=== PATIENT | female | born 1930 | race Caucasian/White ===

== ENCOUNTER 2017-06-19 13:10 | Emergency (ER) ==
[2017-06-19 13:19] VITALS: BP 153/85; TEMP 98.2; BMI 24.2
--- NOTE | 2017-06-19 14:23 | ED.PDOC ---
General ED Provider: Dr. ESTEBAN JACOBSEN Chief Complaint: Extremity Pain/Injury Stated Complaint: Lower extremity weakness. Daughter states she recenlty relocated her mother to an assisted living center from [facility] due to increasing confusion and weakness. Today patient was left sitting on a couch for over an hour and when she attempted to get up had difficulty getting up and ambulating. Noted that after arrival her was observed to ambulate without difficulty with assistance. Time Seen by Physician: 02:05 Mode of Arrival: Walk-In Information Source: Patient Exam Limitations: No limitations, Other (hearing deficit) Primary Care Provider: NONE Nursing and Triage Documentation Reviewed and Agree: Yes Reviewed sepsis parameters & appropriate labs ordered?: Yes System Inflammatory Response Syndrome: Not Applicable Sepsis Protocol: For patient's 13 years and over: Temp is 96.8 and below OR 101 and greater Pulse >90 BPM Resp >20/minute Acutely Altered Mental Status Are patient's symptoms suggestive of a new infection, such as: -Pneumonia -Skin, Soft Tissue -Endocarditis -UTI -Bone, Joint Infection -Implantable Device -Acute Abdominal Infection -Wound Infection -Meningitis -Blood Stream Catheter Infection -Unknown System Inflammatory Response Syndrome: Not Applicable Review of Systems - Review Of Systems Constitutional: Reports: Weakness Eyes: Reports: No symptoms Ears, Nose, Mouth, Throat: Reports: No symptoms Respiratory: Reports: No symptoms Cardiac: Reports: No symptoms GI: Reports: No symptoms : Reports: No symptoms Musculoskeletal: Reports: No symptoms, Muscle pain, Other (weakness) Skin: Reports: No symptoms Neurological: Reports: Cognitive dysfunction, Weakness. Denies: Anxiety, Depressed, Emotional problems, Numbness, [place] seizures, Unable to move upper ext Endocrine: Reports: No symptoms Hematologic/Lymphatic: Reports: No symptoms All Other Systems: Reviewed and Negative Past Medical History - Past Medical History Endocrine: Reports: Hypothyroid Cardiovascular: Reports: Hypertension Respiratory: Reports: None Hematological: Reports: None Gastrointestinal: Reports: None Genitourinary: Reports: None Neuro/Psych: Reports: Anxiety Musculoskeletal: Reports: Arthritis Cancer: Reports: None Last Menstrual Period: N/A - Surgical History General Surgical History: Reports: None - Family History Family History: Reports: None - Social History Smoking Status: Never smoker Hx Substance Use: No Alcohol Screening: None Lives: In Assisted Living - Immunizations Tetanus Shot up to Date: Yes Physical Exam - Physical Exam Appearance: No pain distress Ill-appearing: None Pain Distress: None Eyes: JERALD, EOMI, Conjunctiva clear ENT: Ears normal, Nose normal, Oropharynx normal Respiratory: Airway patent, Breath sounds clear, Breath sounds equal Cardiovascular: RRR, Pulses normal, No rub GI/: Soft, Nontender, No masses, Bowel sounds normal, No Organomegaly Musculoskeletal: Normal strength, ROM intact, No calf tenderness, Edema ( Minimal lower extremity non pitting edema) Skin: Dry Neurological: Sensation intact, Motor intact, Reflexes intact, Cranial nerves intact, Alert, Oriented Psychiatric: Affect appropriate, Mood appropriate Critical Care Note - Critical Care Note Total Time (mins): 0 Course - Course Hematology/Chemistry: 06/19/17 14:35 06/19/17 14:35 Orders, Labs, Meds: Lab Review 06/19/17 06/19/17 06/19/17 14:35 14:35 14:35 WBC 6.45 RBC 4.82 Hgb 14.7 Hct 43.6 MCV 90.5 MCH 30.5 MCHC 33.7 RDW Coeff of Rei 13.3 Plt Count 162 Immature Gran % (Auto) 0.3 Neut % (Auto) 67.0 Lymph % (Auto) 23.1 [place] % (Auto) 7.9 Eos % (Auto) 1.4 Baso % (Auto) 0.3 Immature Gran # (Auto) 0.0 Neut # 4.3 Lymph # 1.5 [place] # 0.5 Eos # 0.1 Baso # 0.0 Sodium 140 Potassium 4.4 Chloride 104 Carbon Dioxide 30 Anion Gap 10.4 BUN 20 H Creatinine 1.10 Estimated GFR (MDRD) 47.00 BUN/Creatinine Ratio 18.18 Glucose 110 Calcium 9.4 Magnesium 2.2 Total Bilirubin 0.6 AST 18 ALT 12 Alkaline Phosphatase 64 Total Protein 7.3 Albumin 3.4 Globulin 3.9 Albumin/Globulin Ratio 0.87 Urine Color Urine Clarity Urine pH Ur Specific [place] Urine Protein Urine Glucose (UA) Urine Ketones Urine Blood Urine Nitrite Urine Bilirubin Urine Urobilinogen Ur Leukocyte Esterase 06/19/17 14:57 WBC RBC Hgb Hct MCV MCH MCHC RDW Coeff of Rei Plt Count Immature Gran % (Auto) Neut % (Auto) Lymph % (Auto) [place] % (Auto) Eos % (Auto) Baso % (Auto) Immature Gran # (Auto) Neut # Lymph # [place] # Eos # Baso # Sodium Potassium Chloride Carbon Dioxide Anion Gap BUN Creatinine Estimated GFR (MDRD) BUN/Creatinine Ratio Glucose Calcium Magnesium Total Bilirubin AST ALT Alkaline Phosphatase Total Protein Albumin Globulin Albumin/Globulin Ratio Urine Color Yellow Urine Clarity Clear Urine pH 6.5 Ur Specific [place] 1.015 Urine Protein Negative Urine Glucose (UA) Negative Urine Ketones Negative Urine Blood Negative Urine Nitrite Negative Urine Bilirubin Negative Urine Urobilinogen 1.0 Ur Leukocyte Esterase Negative Orders Category Date Time Status CBC W/ AUTO DIFF Stat LAB 06/19/17 14:35 Completed CMP [COMPREHENSIVE METABOLIC PANEL] Stat LAB 06/19/17 14:35 Completed MAGNESIUM Stat LAB 06/19/17 14:35 Completed UA [URINALYSIS C & S IF INDICATED] Stat LAB 06/19/17 14:57 Completed Vital Signs: Temp Pulse Resp BP Pulse Ox 06/19/17 13:11 98.2 F 81 20 153/85 H 95 LEA Risk Score LEA Risk Score: Risk Score Odds of by 30D 0 0.1 (0.1-0.2) 1 0.3 (0.2-0.3) 2 0.4 (0.3-0.5) 3 0.7 (0.6-0.9) 4 1.2 (1.0-1.5) 5 2.2 (1.9-2.6) 6 3.0 (2.5-3.6) 7 4.8 (3.8-6.1) Departure - Departure Time of Disposition: 15:40 Disposition: HOME SELF-CARE Discharge Problem: Weakness Instructions: Active Range of Motion Exercises (GEN), Passive Range of Motion Exercises (GEN), Weakness (ED) Condition: Good Pt referred to PMD for follow-up: Yes (7 days) Additional Instructions: Contact local PCP to establish care Follow up 1 wk Seek referral for Physical Therapy for strengthening exercise Allergies/Adverse Reactions: Allergies No Known Allergies Allergy (Unverified 06/19/17 13:23) Home Medications: Ambulatory Orders Buspirone HCl 5 mg PO DAILY 06/19/17 Furosemide 20 mg PO DAILY 06/19/17 Levothyroxine Sodium 12.5 mcg PO DAILY 06/19/17 Metoprolol Tartrate 50 mg PO DAILY 06/19/17 Potassium Chloride [Klor-Con 10] 10 mg PO DAILY 06/19/17
== END 2017-06-19 16:03 | disposition home or self-care (01) ==
LOC: ED 13:10
DX: R53.1 Weakness (principal); I10 Essential (primary) hypertension; E03.9 Hypothyroidism, unspecified; R60.0 Localized edema
CPT/HCPCS: 36415; 80053; 81001; 83735; 85025; 99283

== ENCOUNTER 2017-09-01 12:55 | Inpatient (IN) ==
[2017-09-01 13:36] VITALS: BMI 21.9
[2017-09-01] MEDS ORDERED: ATROPINE SULFATE PFS IVP PRN (13:38)
[2017-09-01] MEDS ORDERED: NITROSTAT SL PRN (13:38)
[2017-09-01] MEDS ORDERED: MORPHINE 4 MG/ML VIAL IVP PRN (13:38)
[2017-09-01] MEDS ORDERED: TYLENOL PO PRN (13:38)
--- NOTE | 2017-09-01 14:28 | DI ---
EXAM: Single view of the chest HISTORY: Cough. COMPARISON: None FINDINGS: Cardiomediastinal silhouette is upper limit of normal with sternotomy wires and cardiac kimberlyn ve. There is no pneumothorax. There is minimal hazy ground-glass in the left lung base. There is n o acute consolidation. The osseous structures demonstrate degenerative disease of the shoulders. IMPRESSION: Mild left lower lobe ground-glass may represent atelectasis/small airways inflammation v ersus small effusion.
[2017-09-01] MEDS: ATIVAN PO SCH ×3 (14:40→20:48)
[2017-09-01] MEDS: LEXAPRO PO SCH (14:40)
[2017-09-01] MEDS: SEROQUEL PO SCH ×2 (14:40→20:48)
[2017-09-01] MEDS ORDERED: GLUCOPHAGE PO SCH (17:30)
[2017-09-01] MEDS: BUSPAR PO SCH (20:47)
[2017-09-01] MEDS: LOPRESSOR PO SCH (20:48)
[2017-09-02] MEDS: SYNTHROID PO SCH (05:48)
[2017-09-02] MEDS: VISTARIL INJ IM PRN ×2 (06:59→16:37)
[2017-09-02] MEDS: SEROQUEL PO SCH ×3 (09:00→20:59)
--- NOTE | 2017-09-02 09:33 | PCM.PROG ---
Attending Provider: ATTENDING PROVIDER: Dr. ROBERTO MONTOYA This patient is seen with Melva Chao, Nurse Practitioner. DATE OF SERVICE: 09/02/17 SUBJECTIVE: This 87 year old WHITE/ F was hospitalized 09/01/17. The patient is sitting in bed. She did not rest last night, is confused, hasn't hit anyone but has aggressive verbal behavior. REVIEW OF SYSTEMS: CONSTITUTIONAL: No night sweats. No fatigue, malaise, lethargy. No fever or chills. HEENT: Eyes: No visual changes. No eye pain. No eye discharge. ENT: No runny nose. No epistaxis. No sinus pain. No odynophagia. No congestion. RESPIRATORY: No cough, no congestion. No hemoptysis. No shortness of breath. CARDIOVASCULAR: No angina symptoms. No CHF symptoms. No atypical chest pain for CAD. No palpitations. No orthopnea.. GASTROINTESTINAL: No abdominal pain. No nausea or vomiting. No diarrhea or constipation. No hematemesis. No hematochezia. GENITOURINARY: No urgency. No frequency. No dysuria. No hematuria. No obstructive symptoms. No discharge. No pain. No significant abnormal bleeding. MUSCULOSKELETAL: No musculoskeletal pain; no joint swelling. NEUROLOGICAL: Awake, confused, aggressive. No headache. No neck pain. No syncope. No seizures. No dizziness. PSYCHIATRIC: Confusion, aggression. Not anxious. No depression. No suicidal thoughts. No homicidal thoughts. SKIN: No rash. No lesions. No wounds. ENDOCRINE: No unexplained weight loss. No weight gain. HEMATOLOGIC/LYMPHATIC: No anemia. No purpura. No petechiae. No prolonged or excessive bleeding. No palpable lymph nodes. PHYSICAL EXAMINATION: GENERAL: The patient is awake, alert, oriented to person only sitting in bed in no distress. VITAL SIGNS: Temperature 97.3 F, Pulse 80, Respiratory Rate 16, BP 138/80, Pulse Ox 95% HEENT: Head normocephalic, atraumatic. Eyes: Extraocular muscles are intact. Pupils are equal, round and reactive to light and accommodation. Ears: No lesions. Nose appeared normal. Throat: No exudate or erythema. NECK: Supple. No JVD, no carotid bruit. No lymphadenopathy or thyromegaly. LUNGS: Diminished breath sounds. Clear to auscultation. Percussion note normal. Chest symmetrical. HEART: S1, S2, no S3. No murmurs. No cyanosis or clubbing. No ascites. Pulses: Dorsalis pedis and posterior tibial pulses +1 to +2 both sides. ABDOMEN: Soft. Non-tender. Bowel sounds active. No CVA tenderness. No mass felt. EXTREMITIES: No edema. Full range of motion of all extremities, equal. NEUROLOGIC: No focal deficit. Cranial nerves II through XII are grossly intact. No headache, no double vision or headache. SKIN: Not dry. Intact. Turgor-normal. LYMPHATIC: No palpable lymph nodes/no lymphedema. MUSCULOSKELETAL: Normal joints with no swelling. Muscle tone is normal. LAB REVIEW: 09/02/17 04:45 09/02/17 04:45 09/02/17 04:45: Sodium 143, Potassium 4.4, Chloride 108 H, Carbon Dioxide 29, Anion Gap 10.4, BUN 33 H, Creatinine 1.14, Estimated GFR (MDRD) 45.00, BUN/ Creatinine Ratio 28.94, Glucose 83, Calcium 8.9, Total Bilirubin 0.5, AST 14 L, ALT 9 L, Alkaline Phosphatase 50 L, Total Protein 5.7 L, Albumin 2.8 L, Globulin 2.9, Albumin/Globulin Ratio 0.97 09/02/17 04:45: WBC 7.13, RBC 3.98 L, Hgb 12.3, Hct 36.7 L, MCV 92.2, MCH 30.9, MCHC 33.5, RDW Coeff of Rei 13.9, Plt Count 143, Immature Gran % (Auto) 0.7, Neut % (Auto) 57.6, Lymph % (Auto) 28.1, [place] % (Auto) 10.5 H, Eos % (Auto) 2.5 , Baso % (Auto) 0.6, Immature Gran # (Auto) 0.1, Neut # (Auto) 4.1, Lymph # ( Auto) 2.0, Donley # (Auto) 0.8, Eos # (Auto) 0.2, Baso # (Auto) 0.0 09/01/17 21:42: Total Creatine Kinase 25, Troponin I 0.0310 09/01/17 18:20: Urine Color Yellow, Urine Clarity Clear, Urine pH 7.0, Ur Specific [place] 1.020, Urine Protein Trace, Urine Glucose (UA) Negative, Urine Ketones 1+, Urine Blood Negative, Urine Nitrite Negative, Urine Bilirubin 1+, Urine Urobilinogen 4.0, Ur Leukocyte Esterase Negative, Urine Microscopic WBC 0- 2, Ur Squamous Epith Cells 2-5, Urine Bacteria Trace 09/01/17 14:08: Vitamin B12 756 09/01/17 14:08: Sodium 142, Potassium 4.2, Chloride 106, Carbon Dioxide 30, Anion Gap 10.2, BUN 29 H, Creatinine 1.31 H, Estimated GFR (MDRD) 38.00, BUN/ Creatinine Ratio 22.13, Glucose 85, Calcium 9.2, Total Bilirubin 0.7, AST 15, ALT 11 L, Alkaline Phosphatase 56, Total Creatine Kinase 27, Troponin I 0.0220, Total Protein 6.4, Albumin 3.1 L, Globulin 3.3, Albumin/Globulin Ratio 0.94, Free T4 0.96 09/01/17 14:08: WBC 6.48, RBC 4.31, Hgb 13.4, Hct 39.3, MCV 91.2, MCH 31.1 H, MCHC 34.1, RDW Coeff of Rei 13.9, Plt Count 144, Immature Gran % (Auto) 0.6, Neut % (Auto) 58.5, Lymph % (Auto) 28.5, [place] % (Auto) 9.0, Eos % (Auto) 2.9, Baso % (Auto) 0.5, Immature Gran # (Auto) 0.0, Neut # (Auto) 3.8, Lymph # (Auto ) 1.9, Donley # (Auto) 0.6, Eos # (Auto) 0.2, Baso # (Auto) 0.0 ASSESSMENT: Please see below. 1. DEMENTIA WITH AGGRESSIVE BEHAVIOR PLAN: 1. Referred to [facility] 2. Increase Seroquel 25 mg b.i.d. 3. Aricept 5 mg daily 4. Namenda 10 mg daily 5. Fall precautions Plan and coordination of the patient's care discussed in the presence of Supervisor Backfilling and nurse. CONDITION: Stable SCRIBED BY: AMANDO KUO Tail Dogger scribed while in presence of service performed by Dr. Montoya/Melva Chao APRN on 09/02/17 ([id number])
[2017-09-02] MEDS: ATIVAN PO SCH ×3 (09:34→20:58)
[2017-09-02] MEDS: ASPIRIN EC PO SCH (09:34)
[2017-09-02] MEDS: BUSPAR PO SCH ×2 (09:34→20:58)
[2017-09-02] MEDS: LOPRESSOR PO SCH ×2 (09:34→20:58)
[2017-09-02] MEDS: LEXAPRO PO SCH (09:35)
--- NOTE | 2017-09-02 11:13 | CT ---
EXAM: CT head without contrast HISTORY: Change in behavior, increased agression COMPARISON: None TECHNIQUE: Serial axial images of the brain were obtained from the skull base to the vertex without IV contrast. FINDINGS: The ventricles, cisterns and sulci demonstrate mild generalized volume loss. The salazar-whi te matter junction is maintained. There is low attenuation extending through the salazar-white matter j unction in the left occipital lobe on image 18.No midline shift or mass is identified. There is no a bnormal intra or extra-axial fluid collection. The paranasal sinuses demonstrates the left paranasal sinus mucosal thickening with hyperostosis. The mastoid air cells are clear. The osseous calvarium is intact. IMPRESSION: 1. No acute intracranial hemorrhage. 2. Low attenuation extending through the left occipital lobe suggestive of age indeterminate ischemi c injury. No prior is available for comparison. 3. Scattered microangiopathy and generalized volume loss. 4. Acute on chronic left maxillary sinusitis. If further evaluation is clinically indicated, MRI may be obtained.
[2017-09-02] MEDS: ARICEPT PO SCH (14:11)
--- NOTE | 2017-09-02 15:09 | HP ---
DATE OF SERVICE: 09/02/17 HISTORY OF PRESENT ILLNESS: 87-year-old white female brought to the office by her daughter, La, as the assisted living which she lives, [facility], has been complaining lately about her being more confused and has aggressive behavior. According to them, the patient is frantically looking for her parents, small children, brothers, sisters. She frequently knocks on the resident's doors day and night wanting help getting to her parents house. The patient also threatened to call police and threatens violence. She is quite destructive to employees, residents and family members of residents frequently throughout the day. Everyone tries to calm her down but to no avail. In fact, it exacerbates her mood at times. At times she uses vulgar language to some of the employees. She was known to exacerbate Sundowner's behavior. Also was noted to be up all night and has very difficult pattern that she follows for sleep lately. The patient has history of dementia. She became my patient on July 07. OTHER PAST MEDICAL HISTORY: 1. Mitral valve replacement 2. Anxiety syndrome 3. Vitamin B12 deficiency 4. Hypertension 5. Hypothyroidism PAST SURGICAL HISTORY: 1. Hysterectomy 1960 2. Mitral valve replacement, 2012 REVIEW OF SYSTEMS: CONSTITUTIONAL: Weakness and fatigue. No night sweats. No malaise, lethargy. No fever or chills. HEENT: Eyes: No visual changes. No eye pain. No eye discharge. ENT: No runny nose. No epistaxis. No sinus pain. No sore throat. No odynophagia. No ear pain. No congestion. RESPIRATORY: No cough, no congestion. No hemoptysis. No shortness of breath. CARDIOVASCULAR: No angina symptoms. No CHF symptoms. No atypical chest pain for CAD. No palpitations. No PND, no orthopnea. GASTROINTESTINAL: No abdominal pain. No nausea or vomiting. No diarrhea or constipation. No hematemesis. No hematochezia. GENITOURINARY: No urgency. No frequency. No dysuria. No hematuria. No obstructive symptoms. No discharge. No pain. No significant abnormal bleeding. MUSCULOSKELETAL: No musculoskeletal pain. No joint swelling. No arthritis. NEUROLOGICAL: The patient's mental status has deteriorated with aggressive behavior. She is more confused. No headache. No neck pain. No syncope. No seizures. No dizziness. PSYCHIATRIC: Not anxious. No depression. No suicidal thoughts. No homicidal thoughts. SKIN: No rash. No lesions. No wounds. ENDOCRINE: No unexplained weight loss. No weight gain. HEMATOLOGIC/LYMPHATIC: No anemia. No purpura. No petechiae. No prolonged or excessive bleeding. No palpable lymph nodes. PERSONAL/FAMILY/SOCIAL HISTORY: The patient is , has three children. Lives in Assisted Living. La, the daughter is taking care of her with power of mergers and acquisitions attorney. She usually does all activities of daily living. Nonsmoker. No alcohol use. Family History: Father at age 40. Mother at age 93. Three brothers, two sisters. MEDICATIONS: Levothyroxine 50 mcg 1/2 tablet daily Lasix 20 mg every other day Klor-Con 10 mEq p.o. every other day Buspirone 5 mg twice a day Metoprolol 50 mg twice a day Ativan 0.5 mg at h.s. Buspirone 15 mg P.O. DAILY ALLERGIES: HEPARIN PHYSICAL EXAMINATION: GENERAL: The patient seems to be oriented to person. VITAL SIGNS: Temperature 98, pulse 70/min, respiratory rate 15, BP 110/70. BMI 24. HEENT: Face looks mildly dehydrated. Head normocephalic, atraumatic. Eyes: Eyelids are swollen. Extraocular muscles are intact. Pupils are equal, round and reactive to light and accommodation. Ears: No lesions. Nose appeared normal. Throat: No exudate or erythema. NECK: Supple. No JVD, no carotid bruit. No lymphadenopathy or thyromegaly. LUNGS: Decreased breath sounds but clear to auscultation. Percussion note normal. Chest symmetrical. HEART: S1, S2, no S3. Grade I/ systolic murmur. No cyanosis or clubbing. No ascites. Pulses: Dorsalis pedis and posterior tibial pulses +1 to +2 both sides. ABDOMEN: Soft. Nontender. Bowel sounds active. No CVA tenderness. No mass felt. EXTREMITIES: No edema. Full range of motion of all extremities, equal. Gait is somewhat unsteady but quite stable otherwise. NEUROLOGIC: No focal deficit. Cranial nerves II through XII are grossly intact. No headache, no double vision or headache. SKIN: Not dry. Intact. Turgor - below normal. LYMPHATIC: No palpable lymph nodes/no lymphedema. MUSCULOSKELETAL: Normal joints with no swelling. Muscle tone is normal. ASSESSMENT: 1. DEMENTIA WITH ABNORMAL BEHAVIOR, AT TIMES AGGRESSIVE BEHAVIOR 2. MITRAL VALVE REPLACEMENT 2012 3. HISTORY OF DEMENTIA FOR THE LAST 3 TO 4 YEARS, WORSENING 4. HYPOTHYROIDISM 5. ANXIETY DISORDER 6. HYSTERECTOMY 7. CHRONIC KIDNEY DISEASE 8. MILD DYSLIPIDEMIA PLAN: 1. Admit 2. Routine telemetry orders 3. CT scan of head with contrast in a.m. 4. Regular diet 5. Ativan 0.5 mg p.o. now and t.i.d. 6. Buspar 15 mg p.o. b.i.d. 7. Lexapro 10 mg p.o. daily and today 8. Seroquel 12.5 mg p.o. b.i.d. daily 9. Metformin 50 mg p.o. b.i.d. 10. T4, TSH, B12 level TIME SPENT: More than 70 minutes. MTDD
[2017-09-02] MEDS ORDERED: NAMENDA PO SCH (21:00)
[2017-09-03] MEDS: VISTARIL INJ IM PRN (03:51)
[2017-09-03] MEDS ORDERED: ATIVAN IM STA ×2 (06:30→08:33)
[2017-09-03] MEDS ORDERED: ATIVAN ONE (06:39)
[2017-09-03] MEDS: SYNTHROID PO SCH (06:44)
[2017-09-03] MEDS: ASPIRIN EC PO SCH (08:16)
[2017-09-03] MEDS: ARICEPT PO SCH (08:16)
[2017-09-03] MEDS: LEXAPRO PO SCH (08:16)
[2017-09-03] MEDS: ATIVAN PO SCH ×2 (08:16→15:00)
[2017-09-03] MEDS: LOPRESSOR PO SCH (08:17)
[2017-09-03] MEDS: BUSPAR PO SCH (08:17)
[2017-09-03] MEDS: SEROQUEL PO SCH (08:21)
--- NOTE | 2017-09-03 13:08 | CM.DICTOOL ---
ADMISSION: 09/01/17 12:55 DISCHARGE: SEPTEMBER 03, 2017 DATE OF SERVICE: 09/03/17 FINAL DIAGNOSIS DEMENTIA AGGRESSIVE BEHAVIORS ANXIETY SYNDROME HYPERTENSION VITAMIN B12 DEFICIENCY HYPOTHYROID MITRAL VALVE REPLACEMENT, 2012 HYSTERECTOMY, 1960 LAST VITALS Temp Pulse Resp BP Pulse Ox 97.3 F L 68 16 101/62 96 09/03/17 10:00 09/03/17 10:00 09/02/17 22:00 09/02/17 22:00 09/03/17 10:00 ACTIVE HOME MEDICATIONS Buspirone HCl (Buspar) 15 mg PO BID [facility] Last Admin: 09/03/17 08:17 Dose: 15 mg Levothyroxine Sodium (Synthroid) 25 mcg PO QDAC [facility] Last Admin: 09/03/17 06:44 Dose: Not Given Lorazepam (Ativan) 0.5 mg PO TID [facility] Last Admin: 09/03/17 08:16 Dose: 0.5 mg Metoprolol Tartrate (Lopressor) 50 mg PO BID [facility] Last Admin: 09/03/17 08:17 Dose: 50 mg Furosemide (Lasix) 20 mg every other day Last Admin: Potassium Chloride (Klor-Con) 10 meq PO Daily Last Admin: ALLERGIES No Known Allergies Allergy (Unverified 06/19/17 13:23) NEW PRESCRIPTIONS: Aricept 5 mg daily Lexapro 10 mg daily Namenda 10 mg bedtime daily Seroquel 25 mg BID SMOKING: Not Applicable DISEASE SPECIFIC EDUCATION: Patient teaching not applicable due to patient confusion LAB REVIEW: 09/02/17 04:45 09/02/17 04:45 PLAN: Discharge to [facility] Diet: Regular as tolerated Activity: As tolerated by patient. The patient is listed as a Full Code No home medications have been discontinued during the patient's admission. Ms. Vasques resides at [facility] in [place], [place]. She is ambulatory and has been able to complete activities of daily living prior to this hospital stay. The family and staff at [facility] reported the patient has lately become more confused and exhibits aggressive behavior. She reportedly has poor sleep and is frequently looking for her parents, small children and other family members. At times, she becomes aggressive in her behaviors by slapping and striking out at staff members. We have communicated with Andres Vasques (son), HCPOA regarding placement at a [facility] to establish medications for the patient that can control her behaviors. He is agreeable to this placement. We have discussed this placement with the daughter, Momo Gupta and she is agreeable also. The family is hoping the patient can return to [facility] with private caregivers hired as needed. Flynn Banks MD
--- NOTE | 2017-09-03 15:02 | DS ---
DATE OF SERVICE: 09/03/17 FINAL DIAGNOSIS: 1. Dementia 2. Aggressive behaviors 3. Anxiety syndrome 4. Hypertension 5. Vitamin B12 Deficiency 6. Hypothyroid 7. Mitral Valve replacement, 2012 8. Hysterectomy, 1959 LAST VITALS: Temperature 97.3, pulse 68, respiratory rate 16, blood pressure 101/62 and pulse ox 96%. DISCHARGE INSTRUCTIONS: Discharge to [facility]. The patient is listed as Full Code. No home medications have been discontinued during the patient's admission. MEDICATIONS AT DISCHARGE: Buspar 15mg PO twice a day Synthroid 25mcg PO QDAC Ativan 0.5mg PO three times a day Lopressor 50mg PO twice a day Lasix 20mg Every other day Klor-Con 10 meq Po daily ALLERGIES: No known allergies. NEW PRESCRIPTIONS: Aricept 5mg daily Lexapro 10mg daily Namenda 10mg bedtime daily Seroquel 25mg twice a day DIET INSTRUCTIONS: Regular as tolerated ACTIVITY: As tolerated by patient. SMOKING: N/A DISEASE SPECIFIC EDUCATION: Patient teaching not applicable due to patient confusion. HOSPITAL COURSE: 87 year old white female was admitted from the office after being seen with dementia with aggressive behavior. The patient's daughter was with her. The patient's daughter was from [place] and she came in because she was informed by the assisted living that patient's behavior is getting to the point where it has been difficult to control the patient in the assisted living and she having some problems with her behavior with other residents and their relatives. The patient also had some issue with possibility of depression in the even hours. The patient's sleep pattern is also completely broken. She is very difficult to control and has been verbally aggressive. In the hospital the patient was put on Ativan 0.5mg three times a day along with Lexapro 10mg with Buspar, Seroquel small dose was started. During the stay in the hospital the patient was controlled at time but had aggressive behavior in colleter hours. The patient was transferred for further care [facility]. Her echocardiogram was done on day of discharge and the report is pending. There was a question about aortic valve replacement on repair. We will try to get records but her cardiovascular status was stable and normal. TIME SPENT: More than 60 minutes. JEIMY
--- NOTE | 2017-09-03 15:05 | PN ---
09/01/17: Level 5 09/02/17: Intermediate 09/03/17: D as in discharge MTDD
--- NOTE | 2017-09-03 15:20 | PN ---
DATE OF SERVICE: 09/02/17 SUBJECTIVE: The patient was seen and examined with the Nurse Practitioner. The patient was restless with some aggressive behavior. The patient has been on Ativan 0.5mg three times a day along with Lexapro 10mg daily with Buspar 15mg twice a day. Seroquel dose would be increased to 25mg twice a day. Aricept 5mg and Namenda 10mg daily will be added. The patient is going to be referred to psych unit if possible. The patient has dementia with abnormal behavior. The daughter was present yesterday but after getting her to the hospital she left to go back home to [place]. TIME SPENT: More than 30 minutes. Plan and coordination of the patient's care discussed in the presence of nurse. JEIMY
[2017-09-03 20:10] VITALS: BP 104/60; TEMP 97
--- NOTE | 2017-09-05 08:35 | ECHO2D ---
Date of Exam: 09/03/17 Ordering Physician: DR. ROBERTO MONTOYA Room #: 104 Reason for Echo: MITRAL VALVE REPLACEMENT/REPAIR, DEMENTIA M-Mode Normal Adult Results LV Dimensions Normal Adult Results AoV Opening excursions >1.6 >1.6 LVEDD-base- 3.5-5.8 3.8 Ao root dimensions 2.0-3.7 3.6 LVESD-base- 3.1-4.6 L. Atrium dimensions 1.9-3.8 3.3 Post. Wall thickness 0.8-1.1 1.2 IV septum (thickness) 0.7-1.2 1.2 Post. Wall excursion 0.72-1.3 NORMAL Septal motion 0.1 Systolic motion R. Ventricular cavity 1.5-2.0 NORMAL LVEF 60% 58% Paradoxical septal wall motion MAYBE 2-D : NORMAL LEFT VENTRICLE AND LEFT ATRIAL SIZE/ MILD MITRAL STENOSIS WITH FIXED POSTERIOR MITRAL VALVE LEAFLET, AKINETIC SEPTUM, NO THROMBUS, NO EFFUSION COLOR FLOW: MILD MITRAL REGURGITATION M-MODE: MV: MITRAL VALVE STENOSIS/ VALVE AREA 1.65CM2/IF MITRAL VALVE REPLACEMENT-- NORMAL FUNCTIONING VALVE AV: NORMAL TV: NORMAL PV: CHAMBER SIZE: NORMAL WALL MOTION: AKINETIC TO PARADOXICAL SEPTAL WALL MOTION PERICARDIUM: NORMAL INTERPRETATION: 1. LEFT VENTRICULAR HYPERTROPHY 2. MILD MITRAL STENOSIS--WITH VALVE AREA 1.65 CM2, FIXED POSTERIOR MITRAL VALVE LEAFLET 3. AKINETIC TO PARADOXICAL SEPTAL WALL MOTION 4. LEFT VENTRICULAR EJECTION FRACTION 58% MTDD
== END 2017-09-03 15:07 | disposition short-term general hospital (02) | DRG 884 ==
LOC: MEDSURG A 12:55
PROVIDERS: ADMIT Internal Medicine; ATTEND Internal Medicine
DX: F03.91 Unspecified dementia, unspecified severity, with behavioral disturbance (principal); F41.8 Other specified anxiety disorders; I10 Essential (primary) hypertension; E53.8 Deficiency of other specified B group vitamins; E03.9 Hypothyroidism, unspecified; Z95.2 Presence of prosthetic heart valve; Z79.899 Other long term (current) drug therapy
CPT/HCPCS: 36415; 80053; 81001; 82550; 82607; 84439; 84484; 85025; 93005; 93010

== ENCOUNTER 2017-09-03 15:14 | Outpatient (CLI) | END 2017-09-03 15:15 | LOC: AMBL 15:14 | PROVIDERS: ATTEND Family Medicine | DX: F03.91 Unspecified dementia, unspecified severity, with behavioral disturbance (principal); R40.2411 Glasgow coma scale score 13-15, in the field [EMT or ambulance] ==